=== PATIENT | female | born 2000 | race Two or more races ===

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

== ENCOUNTER → 2022-05-08 | Outpatient (CLI) | payer OTHER ==
[2022-05-08 22:47] LABS: HCT 37.1 % (37.2-46.3); HGB 11.6 g/dL (12.0-15.0); MCH 28.6 pg (27.0-32.0); MCHC 31.3 g/dL (32.0-37.0); MCV 91.6 fL (80.0-97.0); Mean Platelet Volume 11.6 fL (9.5-12.2); NRBC Per 100 WBC 0 /100 WBCS (0.0-0.0); Platelet Count 175 X 10*3/uL (140-440); RBC 4.05 X 10*6/uL (4.10-5.20); WBC 4.41 X 10*3/uL (4.50-10.00)
[2022-05-08 23:19] LABS: % Iron Saturation 13.86 (12.00-45.00); ALT 13 U/L (8-44); AST 20 U/L (13-35); African American GFR (CKD) 149.3 (60.0-200.0); Albumin 4.9 g/dL (3.8-4.9); Albumin/Globulin Ratio 2.08 (1.60-3.17); Alkaline Phosphatase 64 U/L (41-126); BUN/Creat Ratio 14.83 Ratio (12.00-20.00); Blood Urea Nitrogen 9.6 mg/dL (9.0-27.0); Calcium 9.7 mg/dL (8.7-10.3); Carbon Dioxide 24.7 mmol/L (20.0-27.5); Chloride 105 mmol/L (96-109); Ferritin 6.9 ng/mL (10.0-291.0); Globulin 2.4 g/dL (1.6-3.3); Glucose 105 mg/dL (70-110); Iron 71 ug/dL (50-170); Non-African American GFR(CKD) 128.8 (60.0-200.0); Potassium 4.2 mmol/L (3.5-5.5); Sodium 139 mmol/L (135-145); Total Bilirubin <0.15 mg/dL (0.30-1.20); Total Iron Binding Capacity 515 ug/dL (228-460); Total Protein 7.2 g/dL (6.2-8.2)
== END | disposition home or self-care (01) ==
LOC: LABWHC1 15:40
PROVIDERS: ATTEND Family Medicine
DX: Z77.011 Contact with and (suspected) exposure to lead (principal); R63.6 Underweight
CPT/HCPCS: 36415; 80053; 82728; 83540; 83550; 83655; 85027

== ENCOUNTER 2022-08-01 11:04 | Emergency (ER) | payer OTHER ==
[2022-08-01 11:11] VITALS: BP 134/77; PULSE 76; RESP 20; TEMP 98.6
[2022-08-01] MEDS ORDERED: KETOROLAC 15 MG/ML 1 ML VIAL IM STA (11:31)
[2022-08-01] MEDS ORDERED: LIDOCAINE 5% PATCH TOPICAL STA (11:31)
--- NOTE | 2022-08-01 11:43 | ED ---
General Adult HPI - General Chief complaint: Extremity Injury, Upper Stated complaint: rt arm pain Time Seen by Provider: 08/01/22 11:13 Source: patient, RN notes reviewed Mode of arrival: ambulatory Limitations: no limitations - History of Present Illness Initial comments: 22-year-old female presents to the emergency department chief complaint of right medial wrist pain that goes up into her shoulder. Patient states that it is worse with movement. She states that she underwent a workout yesterday for the first time in a while involving pushups, planks and states that she started having pain during her workout but she did not stop. Denies swelling, redness. Denies fever, chills. She states that she has history of iron deficiency but does not take her medication. - Related Data Previous Rx's Medication Instructions Recorded Cephalexin [Keflex] 500 mg PO Q8HR #21 cap 09/12/20 Omeprazole [PriLOSEC] 20 mg PO DAILY #14 cap 09/12/20 Ketorolac [Toradol] 10 mg PO Q8HR #15 tab 04/01/21 Ondansetron Odt [Zofran Odt] 4 mg PO Q8HR PRN #10 tab 04/01/21 Cefpodoxime Proxetil [Vantin] 200 mg PO Q12HR 10 Days #20 tab 04/07/22 Allergies Allergy/AdvReac Type Severity Reaction Status Date / Time No Known Allergies Allergy Verified 08/01/22 11:11 Review of Systems ROS Statement: Those systems with pertinent positive or pertinent negative responses have been documented in the HPI. ROS Other: All systems not noted in ROS Statement are negative. Past Medical History Past Medical History: Seizure Disorder Additional Past Medical History / Comment(s): depression History of Any Multi-Drug Resistant Organisms: None Reported Past Surgical History: No Surgical Hx Reported Past Psychological History: Depression Smoking Status: Current every day smoker, Vaper Past Alcohol Use History: None Reported Past Drug Use History: Marijuana General Exam Limitations: no limitations General appearance: alert, in no apparent distress Head exam: Present: atraumatic, normocephalic, normal inspection Eye exam: Present: normal appearance. Absent: scleral icterus, conjunctival injection, periorbital swelling ENT exam: Present: normal exam, mucous membranes moist Neck exam: Present: normal inspection, full ROM. Absent: tenderness, meningismus, lymphadenopathy Respiratory exam: Present: normal lung sounds bilaterally. Absent: respiratory distress, wheezes, rales, rhonchi, stridor Cardiovascular Exam: Present: regular rate, normal rhythm, normal heart sounds. Absent: systolic murmur, diastolic murmur, rubs, gallop, clicks Extremities exam: Present: normal inspection, full ROM, tenderness (medial forearm tenderness), normal capillary refill. Absent: pedal edema, joint swelling, calf tenderness Back exam: Present: normal inspection Neurological exam: Present: alert, oriented X3 Psychiatric exam: Present: normal affect, normal mood Skin exam: Present: warm, dry, intact, normal color. Absent: rash Course Vital Signs 08/01/22 11:08 Temperature 98.6 F Pulse Rate 76 Respiratory 20 Rate Blood Pressure 134/77 O2 Sat by Pulse 99 Oximetry Medical Decision Making - Medical Decision Making Was pt. sent in by a medical professional or institution ([facility], [employer]IT[employer] AND STORAGE BIN TENDER, urgent care, hospital, or custodial...) When possible be specific @ -No Did you speak to anyone other than the patient for history (EMS, parent, family, police, friend...)? What history was obtained from this source @ -No Did you review nursing and triage notes (agree or disagree)? Why? @ -I reviewed and agree with nursing and triage notes Were old charts reviewed (outside hosp., previous admission, EMS record, old EKG, old radiological studies, urgent care reports/EKG's, custodial records)? Report findings @ -No old charts were reviewed Differential Diagnosis (chest pain, altered mental status, abdominal pain women, abdominal pain men, vaginal bleeding, weakness, fever, dyspnea, syncope, headache, dizziness, GI bleed, back pain, seizure, CVA, palpatations, mental h ealth, musculoskeletal)? @ -Differential Musculoskeletal Muscular strain, contusion, ligament sprain, fracture, arthritis, septic arthritis, bursitis, cellulitis, muscle spasm, nerve compression, DVT, arterial occlusion, herpes zoster, electrolyte abnormality, tumor.... This is not meant to be in all inclusive list EKG interpreted by me (3pts min.). @ -none X-rays interpreted by me (1pt min.). @ -None done CT interpreted by me (1pt min.). @ -None done U/S interpreted by me (1pt. min.). @ -None done What testing was considered but not performed or refused? (CT, X-rays, U/S, labs)? Why? @ -X-ray was considered but considering the patient's history and physical exam, fracture unlikely What meds were considered but not given or refused? Why? @ -None Did you discuss the management of the patient with other professionals (professionals i.e. Dr., PA, MONITOR AND STORAGE BIN TENDER, lab, RT, psych nurse, nephrology social worker, woodworking shop hand, teacher, senior major gifts officer, window caser)? Give summary @ -No Was smoking cessation discussed for >3mins.? @ -No Was critical care preformed (if so, how long)? @ -No Were there social determinants of health that impacted care today? How? (Homelessness, low income, unemployed, alcoholism, drug addiction, transportati on, low edu. Level, literacy, decrease access to med. care, longterm, rehab)? @ -No Was there de-escalation of care discussed even if they declined (Discuss DNR or withdrawal of care, Hospice)? DNR status @ -No What co-morbidities impacted this encounter? (DM, HTN, Smoking, COPD, CAD, Cancer, CVA, ARF, Chemo, Hep., AIDS, mental health diagnosis, sleep apnea, morbid obesity)? @ -None Was patient admitted / discharged? Hospital course, mention meds given and route, prescriptions, significant lab abnormalities, going to OR and other pertinent info. @ -Discharged. Patient presented to the emergency department for chief complaint of right forearm pain following a workout yesterday. On examination, patient has tenderness over the medial forearm and in the bicep muscle. XR was considered but based on patient exam and history, fracture unlikely. This was discussed with the patient and her father. Patient was given IM toradol and a lidocaine patch. Advised to follow up with her primary care provider. Patient requesting work note which was given. Patient discharged in stable condition. Case discussed with my attending, Dr. Lerma. Undiagnosed new problem with uncertain prognosis? @ -No Drug Therapy requiring intensive monitoring for toxicity (Heparin, Nitro, Insulin, Cardizem)? @ -No Were any procedures done? @ -No Diagnosis/symptom? @ -wrist strain Acute, or Chronic, or Acute on Chronic? @ -acute Uncomplicated (without systemic symptoms) or Complicated (systemic symptoms)? @ -uncomplicated Side effects of treatment? @ -No Exacerbation, Progression, or Severe Exacerbation? @ -No Poses a threat to life or bodily function? How? (Chest pain, USA, DC, pneumonia, PE, COPD, DKA, ARF, appy, cholecystitis, CVA, Diverticulitis, Homicidal, Suicidal, threat to staff... and all critical care pts) @ -No Disposition Clinical Impression: Wrist strain Disposition: HOME SELF-CARE Condition: Stable Instructions (If sedation given, give patient instructions): P.R.I.C.E. Treatment (ED) Additional Instructions: Alternate Tylenol and Motrin as needed for pain. Rest, ice, elevate the right arm. Follow up with your primary care provider. Please return to the emergency department for new or worsening symptoms. Is patient prescribed a controlled substance at d/c from ED?: No Referrals: Andra Walker MD [Primary Care Provider] - 1-2 days Time of Disposition: 11:52
== END 2022-08-01 11:59 | disposition home or self-care (01) ==
LOC: EC 11:04
DX: S66.911A Strain of unspecified muscle, fascia and tendon at wrist and hand level, right hand, initial encounter (principal); F17.290 Nicotine dependence, other tobacco product, uncomplicated; F12.90 Cannabis use, unspecified, uncomplicated; Z86.59 Personal history of other mental and behavioral disorders; X50.0XXA Overexertion from strenuous movement or load, initial encounter
CPT/HCPCS: 99283; 96372; J1885

== ENCOUNTER → 2022-08-18 | Outpatient (CLI) | payer OTHER ==
--- NOTE | 2022-08-20 07:40 | US ---
EXAMINATION TYPE: US pelvis complete transvag DATE OF EXAM: 08/18/2022 COMPARISON: US & CT CLINICAL INDICATION: Female, 22 years old with history of R82.998 OTHER ABNORMAL FINDINGS IN URINE; P t states RLQ pain TECHNIQUE: Transvaginal (TV) and Transabdominal (TA) . Transabdominal sonographic images of the pel vis were acquired. Transvaginal sonographic images were medically necessary to better assess the fol lowing anatomy: Ovaries Date of LMP: 07/31/2022 EXAM MEASUREMENTS: Uterus: 8.0 x 3.8 x 4.7 cm Endometrial Stripe: 1.5 cm Right Ovary: 2.9 x 2.4 x 3.1 cm Left Ovary: 3.6 x 2.2 x 2.6 cm 1. Uterus: Anteverted wnl 2. Endometrium: Thickened 3. Right Ovary: wnl 4. Left Ovary: wnl 5. Bilateral Adnexa: wnl 6. Posterior cul-de-sac: Scant amount of free fluid IMPRESSION: Nonspecific endometrial thickening. Examination is otherwise unremarkable.
== END | disposition home or self-care (01) ==
LOC: RADUSWWP 16:07
PROVIDERS: ATTEND Family Medicine
DX: R93.89 Abnormal findings on diagnostic imaging of other specified body structures (principal); R82.998 Other abnormal findings in urine
CPT/HCPCS: 76830; 76856

== ENCOUNTER 2024-02-06 20:10 | Emergency (ER) | payer OTHER ==
--- NOTE | 2024-02-06 20:57 | ED ---
Nausea/Vomiting/Diarrhea HPI - General Source: patient, RN notes reviewed Mode of arrival: ambulatory Limitations: no limitations <Shantelle Duran - Last Filed: 02/06/24 22:00> <Ayse Cates - Last Filed: 02/07/24 18:52> - General Chief complaint: Nausea/Vomiting/Diarrhea Stated complaint: NVD Time Seen by Provider: 02/06/24 20:56 - History of Present Illness Initial comments: 23-year-old female presented to the ER for evaluation of nausea, vomiting and diarrhea. Patient states all day she has had persistent nausea, vomiting and diarrhea. She also is reporting generalized abdominal pain. She does report she ate red chips prior to this occurring and is unsure of any hematochezia, hematic emesis or melena. Patient denies fevers but admits to chills. She denies any significant past medical history. Patient has not taken anything for symptoms at this time. Patient does report a recent cough. Denies any difficulty breathing, chest pain, urinary complaints or peripheral edema. (Shantelle Duran) - Related Data Previous Rx's Medication Instructions Recorded Cephalexin [Keflex] 500 mg PO Q8HR #21 cap 09/12/20 Omeprazole [PriLOSEC] 20 mg PO DAILY #14 cap 09/12/20 Ketorolac [Toradol] 10 mg PO Q8HR #15 tab 04/01/21 Ondansetron Odt [Zofran Odt] 4 mg PO Q8HR PRN #10 tab 04/01/21 Cefpodoxime Proxetil [Vantin] 200 mg PO Q12HR 10 Days #20 tab 04/07/22 Ondansetron Odt [Zofran Odt] 4 mg PO Q8HR PRN #10 tab 02/07/24 Allergies Allergy/AdvReac Type Severity Reaction Status Date / Time No Known Allergies Allergy Verified 08/01/22 11:11 Review of Systems ROS Other: All systems not noted in ROS Statement are negative. <Shantelle Duran - Last Filed: 02/06/24 22:00> ROS Other: All systems not noted in ROS Statement are negative. <Ayse Cates - Last Filed: 02/07/24 18:52> ROS Statement: Those systems with pertinent positive or pertinent negative responses have been documented in the HPI. Past Medical History Past Medical History: Seizure Disorder Additional Past Medical History / Comment(s): depression History of Any Multi-Drug Resistant Organisms: None Reported Past Surgical History: No Surgical Hx Reported Past Psychological History: Depression Smoking Status: Current every day smoker, Vaper Past Alcohol Use History: None Reported Past Drug Use History: Marijuana <Shantelle Duran - Last Filed: 02/06/24 22:00> General Exam Limitations: no limitations General appearance: alert, in no apparent distress Respiratory exam: Present: normal lung sounds bilaterally. Absent: respiratory distress, wheezes, rales, rhonchi, stridor Cardiovascular Exam: Present: normal rhythm, tachycardia, normal heart sounds GI/Abdominal exam: Present: soft, tenderness (Generalized), normal bowel sounds Neurological exam: Present: alert, oriented X3, CN II-XII intact Skin exam: Present: warm, dry, intact, normal color. Absent: rash <Shantelle Duran - Last Filed: 02/06/24 22:00> Course Vital Signs 02/06/24 02/07/24 02/07/24 20:22 01:15 03:30 Temperature 98.6 F 97.8 F Pulse Rate 111 H 98 88 Respiratory 20 16 18 Rate Blood Pressure 128/77 112/76 108/78 O2 Sat by Pulse 100 97 99 Oximetry Medical Decision Making - Lab Data Result diagrams: 02/06/24 21:00 02/06/24 21:00 <Shantelle Duran - Last Filed: 02/06/24 22:00> - Lab Data Result diagrams: 02/06/24 21:00 02/06/24 21:00 <Ayse Cates - Last Filed: 02/07/24 18:52> - Medical Decision Making Was pt. sent in by a medical professional or institution (, PA, CUSTOMS PATROL OFFICER, urgent care, hospital, or fci...) When possible be specific @ -No Did you speak to anyone other than the patient for history (EMS, parent, family, police, friend...)? What history was obtained from this source @ -No Did you review nursing and triage notes (agree or disagree)? Why? @ -I reviewed and agree with nursing and triage notes Were old charts reviewed (outside hosp., previous admission, EMS record, old EKG, old radiological studies, urgent care reports/EKG's, fci records)? Report findings @ -No old charts were reviewed Differential Diagnosis (chest pain, altered mental status, abdominal pain women, abdominal pain men, vaginal bleeding, weakness, fever, dyspnea, syncope, headache, dizziness, GI bleed, back pain, seizure, CVA, palpatations, mental health, musculoskeletal)? @ -Differential Abdominal Pain Women:Appendicitis, Cholecystitis, diverticulosis, ischemic bowel, pancreatitis, hepatitis, UTI, gastroenteritis, AAA, incarcerated hernia, bowel obstruction, constipation, inflammatory bowel, hepatitis, peptic ulcer disease, splenic infarction, perforated viscus, vulvitis, ovarian torsion, PID, kidney stone, placenta abruption, this is not meant to be an all-inclusive list EKG interpreted by me (3pts min.). @ -None done X-rays interpreted by me (1pt min.). @ -None done CT interpreted by me (1pt min.). @ -Pending U/S interpreted by me (1pt. min.). @ -None done What testing was considered but not performed or refused? (CT, X-rays, U/S, labs)? Why? @ -None What meds were considered but not given or refused? Why? @ -None Did you discuss the management of the patient with other professionals (professionals i.e. , PA, CUSTOMS PATROL OFFICER, lab, RT, psych nurse, social problems specialist, preschool assistant, teacher, escrow officer, director case)? Give summary @ -No Was smoking cessation discussed for >3mins.? @ -No Was critical care preformed (if so, how long)? @ -No Were there social determinants of health that impacted care today? How? (Homelessness, low income, unemployed, alcoholism, drug addiction, petty sportation, low edu. Level, literacy, decrease access to med. care, alf, rehab)? @ -No Was there de-escalation of care discussed even if they declined (Discuss DNR or withdrawal of care, Hospice)? DNR status @ -No What co-morbidities impacted this encounter? (DM, HTN, Smoking, COPD, CAD, Cancer, CVA, ARF, Chemo, Hep., AIDS, mental health diagnosis, sleep apnea, morbid obesity)? @ -None Was patient admitted / discharged? Hospital course, mention meds given and route, prescriptions, significant lab abnormalities, going to OR and other pertinent info. @ -[23-year-old female presented the ER for evaluation of nausea, vomiting, diarrhea and abdominal discomfort. Upon examination, patient is tachycardic at 111 no signs of acute distress. Vitals otherwise stable. Generalized abdominal tenderness to exam with no rebound or guarding. Laboratory studies including urine will be obtained. CBC unimpressive. CMP unimpressive. Viral swabs negative. Patient received symptomatic control in the ER with IV fluids, Toradol and Zofran. CT ordered as patient complaining of continued pain and pending at time of sign out to Ayse Springer PA-C at [phone]. (Shantelle Duran) Patient was signed out to me pending urinalysis, CT and disposition. urinalysis is contaminated with 24 epithelial cells and consistent with dehydration with 4+ ketones and elevated specific gravity. She is right with additional IV fluids. hCG is negative. The patient is sent for CT imaging. CT of the abdomen pelvis with IV contrast unremarkable for acute process. On reevaluation after medications patient has ceased emesis and states that she is feeling better. She is provided with starter pack for Zofran instructed to continue clear liquid diet over 24 hours and slowly reintroducing foods after., discussed with Dr. English (Ayse Cates) - Lab Data Lab Results 02/06/24 02/06/24 02/06/24 Range/Units 21:00 21:00 21:00 WBC 6.8 (3.8-10.6) k/uL RBC 4.83 (3.80-5.40) m/uL Hgb 13.8 (11.4-16.0) gm/dL Hct 42.0 (34.0-46.0) % MCV 87.0 (80.0-100.0) fL MCH 28.6 (25.0-35.0) pg MCHC 32.8 (31.0-37.0) g/dL RDW 13.6 (11.5-15.5) % Plt Count 210 (150-450) k/uL MPV 8.2 Neutrophils % 91 % Lymphocytes % 4 % Monocytes % 3 % Eosinophils % 0 % Basophils % 0 % Neutrophils # 6.2 (1.3-7.7) k/uL Lymphocytes # 0.3 L (1.0-4.8) k/uL Monocytes # 0.2 (0-1.0) k/uL Eosinophils # 0.0 (0-0.7) k/uL Basophils # 0.0 (0-0.2) k/uL Sodium 139 (137-145) mmol/L Potassium 3.7 (3.5-5.1) mmol/L Chloride 108 H (98-107) mmol/L Carbon Dioxide 17 L (22-30) mmol/L Anion Gap 14 mmol/L BUN 14 (7-17) mg/dL Creatinine 0.58 (0.52-1.04) mg/dL Est GFR (CKD-EPI)AfAm >90 (>60 ml/min/1.73 sqM) Est GFR (CKD-EPI)NonAf >90 (>60 ml/min/1.73 sqM) Glucose 98 (74-99) mg/dL Plasma Lactic Acid Ry 1.6 (0.7-2.0) mmol/L Calcium 10.3 H (8.4-10.2) mg/dL Total Bilirubin 0.9 (0.2-1.3) mg/dL AST 26 (14-36) U/L ALT 12 (4-34) U/L Alkaline Phosphatase 100 (38-126) U/L Total Protein 9.2 H (6.3-8.2) g/dL Albumin 5.7 H (3.5-5.0) g/dL Amylase 69 (30-110) U/L Lipase 46 (23-300) U/L Urine Color Urine Appearance (Clear) Urine pH (5.0-8.0) Ur Specific [place] (1.001-1.035) Urine Protein (Negative) Urine Glucose (UA) (Negative) Urine Ketones (Negative) Urine Blood (Negative) Urine Nitrite (Negative) Urine Bilirubin (Negative) Urine Urobilinogen (<2.0) mg/dL Ur Leukocyte Esterase (Negative) Urine RBC (0-5) /hpf Urine WBC (0-5) /hpf Ur Squamous Epith Cells (0-4) /hpf Urine Bacteria (None) /hpf Hyaline Casts (0-2) /lpf Urine Mucus (None) /hpf Urine HCG, Qual (Not Detectd) Influenza Type A (PCR) (Not Detectd) Influenza Type B (PCR) (Not Detectd) RSV (PCR) (Not Detectd) SARS-CoV-2 (PCR) (Not Detectd) 02/06/24 02/06/24 02/06/24 Range/Units 21:00 22:13 22:13 WBC (3.8-10.6) k/uL RBC (3.80-5.40) m/uL Hgb (11.4-16.0) gm/dL Hct (34.0-46.0) % MCV (80.0-100.0) fL MCH (25.0-35.0) pg MCHC (31.0-37.0) g/dL RDW (11.5-15.5) % Plt Count (150-450) k/uL MPV Neutrophils % % Lymphocytes % % Monocytes % % Eosinophils % % Basophils % % Neutrophils # (1.3-7.7) k/uL Lymphocytes # (1.0-4.8) k/uL Monocytes # (0-1.0) k/uL Eosinophils # (0-0.7) k/uL Basophils # (0-0.2) k/uL Sodium (137-145) mmol/L Potassium (3.5-5.1) mmol/L Chloride (98-107) mmol/L Carbon Dioxide (22-30) mmol/L Anion Gap mmol/L BUN (7-17) mg/dL Creatinine (0.52-1.04) mg/dL Est GFR (CKD-EPI)AfAm (>60 ml/min/1.73 sqM) Est GFR (CKD-EPI)NonAf (>60 ml/min/1.73 sqM) Glucose (74-99) mg/dL Plasma Lactic Acid Ry (0.7-2.0) mmol/L Calcium (8.4-10.2) mg/dL Total Bilirubin (0.2-1.3) mg/dL AST (14-36) U/L ALT (4-34) U/L Alkaline Phosphatase (38-126) U/L Total Protein (6.3-8.2) g/dL Albumin (3.5-5.0) g/dL Amylase (30-110) U/L Lipase (23-300) U/L Urine Color Yellow Urine Appearance Cloudy H (Clear) Urine pH 5.5 (5.0-8.0) Ur Specific [place] 1.037 H (1.001-1.035) Urine Protein 2+ H (Negative) Urine Glucose (UA) Negative (Negative) Urine Ketones 4+ H (Negative) Urine Blood Large H (Negative) Urine Nitrite Negative (Negative) Urine Bilirubin Negative (Negative) Urine Urobilinogen <2.0 (<2.0) mg/dL Ur Leukocyte Esterase Negative (Negative) Urine RBC 15 H (0-5) /hpf Urine WBC 2 (0-5) /hpf Ur Squamous Epith Cells 24 H (0-4) /hpf Urine Bacteria Rare H (None) /hpf Hyaline Casts 1 (0-2) /lpf Urine Mucus Many H (None) /hpf Urine HCG, Qual Not Detected (Not Detectd) Influenza Type A (PCR) Not Detected (Not Detectd) Influenza Type B (PCR) Not Detected (Not Detectd) RSV (PCR) Not Detected (Not Detectd) SARS-CoV-2 (PCR) Not Detected (Not Detectd) Disposition <Shantelle Duran - Last Filed: 02/06/24 22:00> Is patient prescribed a controlled substance at d/c from ED?: No Time of Disposition: 02:47 <Ayse Cates - Last Filed: 02/07/24 18:52> Clinical Impression: Nausea & vomiting, Unspecified abdominal pain Disposition: HOME SELF-CARE Condition: Good Instructions (If sedation given, give patient instructions): Acute Nausea and Vomiting (ED) Additional Instructions: Please return to the Emergency Department if symptoms worsen or any other concerns. Prescriptions: Ondansetron Odt [Zofran Odt] 4 mg PO Q8HR PRN #10 tab PRN Reason: Nausea Referrals: None,Stated [Primary Care Provider] - 1-2 days
[2024-02-06 21:27] LABS: ALT 12 U/L (4-34); AST 26 U/L (14-36); African American GFR (CKD) >90 (>60 ml/min/1.73 sqM); Albumin 5.7 g/dL (3.5-5.0); Alkaline Phosphatase 100 U/L (38-126); Amylase 69 U/L (30-110); Anion Gap 14 mmol/L; Blood Urea Nitrogen 14 mg/dL (7-17); Calcium 10.3 mg/dL (8.4-10.2); Carbon Dioxide 17 mmol/L (22-30); Chloride 108 mmol/L (98-107); Glucose 98 mg/dL (74-99); Lipase 46 U/L (23-300); Non-African American GFR(CKD) >90 (>60 ml/min/1.73 sqM); Potassium 3.7 mmol/L (3.5-5.1); Sodium 139 mmol/L (137-145); Total Bilirubin 0.9 mg/dL (0.2-1.3); Total Protein 9.2 g/dL (6.3-8.2)
[2024-02-06] MEDS: SODIUM CHLORIDE 0.9% 1,000 ML IV STA (21:27)
[2024-02-06] MEDS: KETOROLAC 15 MG/ML 1 ML VIAL IVP STA (21:29)
[2024-02-06] MEDS: ONDANSETRON 4 MG/2 ML VIAL IVP STA ×2 (21:30→22:23)
[2024-02-06 21:40] LABS: Basophils % (A) 0 %; Eosinophils % (A) 0 %; HGB 13.8 gm/dL (11.4-16.0); Lymphocytes # (A) 0.3 k/uL (1.0-4.8); Lymphocytes % (A) 4 %; MCH 28.6 pg (25.0-35.0); MCHC 32.8 g/dL (31.0-37.0); Mean Platelet Volume 8.2; Monocytes # (A) 0.2 k/uL (0-1.0); Monocytes % (A) 3 %; Neutrophils # (A) 6.2 k/uL (1.3-7.7); Neutrophils % (A) 91 %; Platelet Count 210 k/uL (150-450); RBC 4.83 m/uL (3.80-5.40); RDW 13.6 % (11.5-15.5); WBC 6.8 k/uL (3.8-10.6)
[2024-02-06] MEDS: MORPHINE SULFATE 2 MG/ML SYRINGE IVP ONE (22:23)
[2024-02-06 22:53] LABS: Appearance,Urine Cloudy (Clear); Bacteria,Urine Rare /hpf; Bilirubin,Urine Negative (Negative); Blood,Urine Large (Negative); Color,Urine Yellow; Glucose,Urine (UA) Negative (Negative); Hyaline Casts,Urine 1 /lpf (0-2); Ketones,Urine 4+ (Negative); Leukocyte Esterase,Urine Negative (Negative); Mucus,Urine Many /hpf; Nitrite,Urine Negative (Negative); PH, Urine 5.5 (5.0-8.0); Protein,Urine 2+ (Negative); RBC,Urine 15 /hpf (0-5); Specific Gravity,Urine 1.037 (1.001-1.035); Squamous Epithelial Cell,Urine 24 /hpf (0-4); Urobilinogen,Urine <2.0 mg/dL (<2.0); WBC,Urine 2 /hpf (0-5)
[2024-02-06] MEDS: METOCLOPRAMIDE 5 MG/ML 2 ML VIAL IVP STA (23:59)
--- NOTE | 2024-02-07 02:31 | CT ---
EXAM: CT Abdomen and Pelvis With Intravenous Contrast CLINICAL HISTORY: ITS.REASON CT Reason: abd pain/n/v/d TECHNIQUE: Axial computed tomography images of the abdomen and pelvis with intravenous contrast. CTDI is 8.4 mGy and DLP is 383.7 mGy-cm. This CT exam was performed using one or more of the following dose reduction techniques: automated exposure control, adjustment of the mA and/or kV according to patient size, and/or use of iterative reconstruction technique. COMPARISON: No relevant prior studies available. FINDINGS: Lung bases: Unremarkable. No mass. No consolidation. ABDOMEN: Liver: Unremarkable. No mass. Gallbladder and bile ducts: Unremarkable. No calcified stones. No ductal dilation. Pancreas: Unremarkable. No mass. No ductal dilation. Spleen: Unremarkable. No splenomegaly. Adrenals: Unremarkable. No mass. Kidneys and ureters: Unremarkable. No solid mass. No hydronephrosis. Stomach and bowel: Unremarkable. No obstruction. No mucosal thickening. PELVIS: Appendix: No findings to suggest acute appendicitis. Bladder: Unremarkable. No mass. Reproductive: Unremarkable as visualized. ABDOMEN and PELVIS: Intraperitoneal space: Mild free fluid in the pelvis. No free air. Bones/joints: No acute fracture. No dislocation. Soft tissues: Unremarkable. Vasculature: Unremarkable. No abdominal aortic aneurysm. Lymph nodes: Unremarkable. No enlarged lymph nodes. IMPRESSION: No acute findings in the abdomen or pelvis.
[2024-02-07] MEDS: SODIUM CHLORIDE 0.9% 1,000 ML IV STA (02:43)
[2024-02-07] MEDS: ONDANSETRON 4 MG ODT STARTER PACK 2 TAB BTL PO STA (03:28)
[2024-02-07 03:30] VITALS: BP 108/78; PULSE 88; RESP 18; TEMP 97.8
== END 2024-02-07 03:30 | disposition home or self-care (01) ==
LOC: EC 20:10
DX: R10.84 Generalized abdominal pain (principal); R11.2 Nausea with vomiting, unspecified; F17.290 Nicotine dependence, other tobacco product, uncomplicated; Z11.52 Encounter for screening for COVID-19
CPT/HCPCS: 36415; 80053; 82150; 83605; 83690; 85025; 81001; 81025; 87636; 74177; 99284; 96374; 96375; 96376; 96361 ×2; J2765; J2405; J2270; J1885; Q9967

== ENCOUNTER → 2024-04-11 | Outpatient (CLI) | payer OTHER ==
--- NOTE | 2024-04-13 22:44 | CT ---
EXAMINATION TYPE: CT abdomen wo/w con DATE OF EXAM: 04/11/2024 11:14 AM COMPARISON: 02/06/2024 CLINICAL INDICATION: Female, 23 years old with history of R82.5 ELEVATED URINE LEVELS OF DRUG/MEDS/BI OL SUBS, Elevated BP TECHNIQUE: Axial images were obtained from above the diaphragm to the pubic rami in the axial plane a t 5 mm thick sections. Reconstructed images are reviewed on the computer in the coronal plane. CONTRAST: 100 mL of Isovue 300. Study performed with Oral Contrast DLP: 369.90 mGycm, Automated exposure control for dose reduction was used. FINDINGS: Limited CT sections are obtained the lung bases. The lung bases are clear. CT ABDOMEN: No abnormal enhancement Liver: Normal Spleen: Normal Pancreas: Normal Adrenal glands: The adrenal glands are normal. Gallbladder: Normal Kidneys: No masses are evident. No hydronephrosis is present. No cysts are present. No renal stone s evident. No abnormal enhancement on early or delayed contrast phases. Aorta: Vascular calcification is within the aorta. Inferior vena cava: Normal. Loops of bowel within the abdomen and upper pelvis are normal. There are loops of bowel which are incompletely distended or lack oral contrast limiting their evaluation. IMPRESSION: 1. No suspicious acute changes CT abdomen [facility], , 04/13/2024 10:42 PM
== END | disposition home or self-care (01) ==
LOC: RADCTMAIN 10:05
PROVIDERS: ATTEND Family Medicine
DX: R82.5 Elevated urine levels of drugs, medicaments and biological substances (principal)
CPT/HCPCS: 74170; Q9967

== ENCOUNTER 2024-04-27 16:45 | Emergency (ER) | payer OTHER ==
--- NOTE | 2024-04-27 17:13 | ED ---
General Adult HPI - General Chief complaint: Neuro Symptoms/Deficit Stated complaint: allergic reaction Time Seen by Provider: 04/27/24 17:10 Source: patient Mode of arrival: ambulatory Limitations: no limitations - History of Present Illness Initial comments: Dictation was produced using [employer] dictation software. please excuse any grammatical, word or spelling errors. 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 Patient is she was having a normal day when all of a sudden she started to feel faint had a migraine started to get dizzy. Her material handling crew supervisor checked her temperature is found to be at 100. She was sent home from work. By the time she got home from work she noticed a rash on her left face. Patient also noticed that her tongue felt numb completely and her left arm was having par esthesias. She went to the urgent care was redirected to the emergency department. Patient denies any pain complaints currently. The ROS documented in this emergency department record has been reviewed and confirmed by me. Those systems with pertinent positive or negative responses have been documented in the HPI. All other systems are other negative and/or noncontributory. - Related Data Previous Rx's Medication Instructions Recorded Cephalexin [Keflex] 500 mg PO Q8HR #21 cap 09/12/20 Omeprazole [PriLOSEC] 20 mg PO DAILY #14 cap 09/12/20 Ketorolac [Toradol] 10 mg PO Q8HR #15 tab 04/01/21 Ondansetron Odt [Zofran Odt] 4 mg PO Q8HR PRN #10 tab 04/01/21 Cefpodoxime Proxetil [Vantin] 200 mg PO Q12HR 10 Days #20 tab 04/07/22 Ondansetron Odt [Zofran Odt] 4 mg PO Q8HR PRN #10 tab 02/07/24 Allergies Allergy/AdvReac Type Severity Reaction Status Date / Time No Known Allergies Allergy Verified 04/27/24 17:00 Review of Systems ROS Statement: Those systems with pertinent positive or pertinent negative responses have been documented in the HPI. ROS Other: All systems not noted in ROS Statement are negative. Past Medical History Past Medical History: Seizure Disorder Additional Past Medical History / Comment(s): depression History of Any Multi-Drug Resistant Organisms: None Reported Past Surgical History: No Surgical Hx Reported Past Psychological History: Depression Smoking Status: Current every day smoker, Vaper Past Alcohol Use History: None Reported Past Drug Use History: Marijuana General Exam - General Exam Comments Initial Comments: PHYSICAL EXAM: General Impression: Alert and oriented x3, not in acute distress HEENT: Normocephalic atraumatic, extra-ocular movements intact, pupils equal and reactive to light bilaterally, mucous membranes moist. Cardiovascular: Heart regular rate and rhythm Chest: Able to complete full sentences, no retractions, no tachypnea Abdomen: abdomen soft, non-tender, non-distended, no organomegaly Musculoskeletal: Pulses present and equal in all extremities, no peripheral noelle ma Motor: no focal deficits noted Neurological: CN II-XII grossly intact, no focal motor or sensory deficits noted Skin: Petechial rash to the left face from the left temporal area to the left maxilla no petechiae to the soft palate or distal extremities Psych: Normal affect and mood Limitations: no limitations Course Vital Signs 04/27/24 16:54 Temperature 98 F Pulse Rate 99 Respiratory 18 Rate Blood Pressure 139/99 O2 Sat by Pulse 100 Oximetry Medical Decision Making - Medical Decision Making Was pt. sent in by a medical professional or institution (, PA, BUSINESS MANAGEMENT ANALYST, urgent care, hospital, or [facility]...) When possible be specific @ -No Did you speak to anyone other than the patient for history (EMS, parent, family, police, friend...)? What history was obtained from this source @ -No Did you review nursing and triage notes (agree or disagree)? Why? @ -I reviewed and agree with nursing and triage notes Were old charts reviewed (outside hosp., previous admission, EMS record, old EKG, old radiological studies, urgent care reports/EKG's, [facility] records)? Report findings @ -No old charts were reviewed Differential Diagnosis (chest pain, altered mental status, abdominal pain women, abdominal pain men, vaginal bleeding, musculoskeletal, weakness, fever, dyspnea, syncope, headache, dizziness, GI bleed, back pain, seizure, CVA, palpatations, mental health)? @ -Differential Dizziness: Benign paroxysmal positional Vertigo, Meniere's disease, otitis media, acoustic neuroma, vertebrobasilar insufficiency, cerebellar stroke, encephalitis, hypovolemic, arrhythmia, coronary artery syndrome, anemia, this is not meant to be an all-inclusive list EKG interpreted by me (3pts min.). @ -None done X-rays interpreted by me (1pt min.). @ -None done CT interpreted by me (1pt min.). @ -CT brain shows no acute processes U/S interpreted by me (1pt. min.). @ -None done What testing was considered but not performed or refused? (CT, X-rays, U/S, labs)? Why? @ -None What meds were considered but not given or refused? Why? @ -None Was smoking cessation discussed for >3mins.? @ -No Were there social determinants of health that impacted care today? How? (Homelessness, low income, unemployed, alcoholism, drug addiction, transpo rtation, low edu. Level, literacy, decrease access to med. care, detention, rehab)? @ -No Was there de-escalation of care discussed even if they declined (Discuss DNR or withdrawal of care, Hospice)? DNR status @ -No What co-morbidities impacted this encounter? (DM, HTN, Smoking, COPD, CAD, Cancer, CVA, ARF, Chemo, Hep., AIDS, mental health diagnosis, sleep apnea, morbid obesity)? @ -None Was patient admitted / discharged? Hospital course, mention meds given and route, prescriptions, significant lab abnormalities, going to OR and other pertinent info. @ -23-year-old female presents to the emergency department for dizziness feeling faint, left facial rash and slight headache. Vital signs stable. Patient well-appearing at the bedside. Rash appears to be maculopapular. Nonblanching. Does not appear to be pathologic or concerning for trigeminal neuralgia. CT brain is negative. Labs are unremarkable. Patient told to follow-up with primary care doctor. At this point no high risk features noted. Patient discharged Did you discuss the management of the patient with other professionals (professionals i.e. , PA, BUSINESS MANAGEMENT ANALYST, lab, RT, psych nurse, rn social work, air cargo ground operations supervisor, teacher, air crew officer, manager rn case)? Give summary @ -No Was critical care preformed (if so, how long)? @ -No Undiagnosed new problem with uncertain prognosis? @ -No Drug Therapy requiring intensive monitoring for toxicity (Heparin, Nitro, Insulin, Cardizem)? @ -No Were any procedures done? @ -No Diagnosis/symptom? Acute, or Chronic, or Acute on Chronic? Uncomplicated (without systemic symptoms) or Complicated (systemic symptoms)? @ -Facial rash Side effects of treatment? @ -No Exacerbation, Progression, or Severe Exacerbation? @ -No Poses a threat to life or bodily function? How? (Chest pain, [place], SC, pneumonia, PE, COPD, DKA, ARF, appy, cholecystitis, CVA, Diverticulitis, Homicidal, Suicidal, threat to staff... and all critical care pts) @ -No - Lab Data Result diagrams: 04/27/24 17:40 04/27/24 17:40 Lab Results 04/27/24 04/27/24 04/27/24 Range/Units 17:40 17:40 17:40 WBC 11.4 H (3.8-10.6) k/uL RBC 4.34 (3.80-5.40) m/uL Hgb 11.7 (11.4-16.0) gm/dL Hct 37.0 (34.0-46.0) % MCV 85.3 (80.0-100.0) fL MCH 27.0 (25.0-35.0) pg MCHC 31.7 (31.0-37.0) g/dL RDW 15.2 (11.5-15.5) % Plt Count 214 (150-450) k/uL MPV 8.0 Neutrophils % 85 % Lymphocytes % 9 % Monocytes % 4 % Eosinophils % 0 % Basophils % 0 % Neutrophils # 9.7 H (1.3-7.7) k/uL Lymphocytes # 1.0 (1.0-4.8) k/uL Monocytes # 0.5 (0-1.0) k/uL Eosinophils # 0.1 (0-0.7) k/uL Basophils # 0.0 (0-0.2) k/uL Sodium 137 (137-145) mmol/L Potassium 3.7 (3.5-5.1) mmol/L Chloride 102 (98-107) mmol/L Carbon Dioxide 21 L (22-30) mmol/L Anion Gap 14 mmol/L BUN 12 (7-17) mg/dL Creatinine 0.46 L (0.52-1.04) mg/dL Est GFR (CKD-EPI)AfAm >90 (>60 ml/min/1.73 sqM) Est GFR (CKD-EPI)NonAf >90 (>60 ml/min/1.73 sqM) Glucose 90 (74-99) mg/dL Calcium 9.7 (8.4-10.2) mg/dL Magnesium 2.2 (1.6-2.3) mg/dL Total Bilirubin 0.4 (0.2-1.3) mg/dL AST 26 (14-36) U/L ALT 13 (4-34) U/L Alkaline Phosphatase 67 (38-126) U/L Total Protein 7.4 (6.3-8.2) g/dL Albumin 4.7 (3.5-5.0) g/dL Urine HCG, Qual Not Detected (Not Detectd) Disposition Clinical Impression: Facial rash Disposition: HOME SELF-CARE Condition: Good Instructions (If sedation given, give patient instructions): Dermatitis (ED) Is patient prescribed a controlled substance at d/c from ED?: No Referrals: Gurpreet Tsai MD [Primary Care Provider] - 1-2 days Time of Disposition: 19:09
[2024-04-27] MEDS: SODIUM CHLORIDE 0.9% 1,000 ML IV STA (17:40)
[2024-04-27 17:59] LABS: Basophils % (A) 0 %; Eosinophils # (A) 0.1 k/uL (0-0.7); Eosinophils % (A) 0 %; HGB 11.7 gm/dL (11.4-16.0); Lymphocytes % (A) 9 %; MCHC 31.7 g/dL (31.0-37.0); MCV 85.3 fL (80.0-100.0); Monocytes # (A) 0.5 k/uL (0-1.0); Monocytes % (A) 4 %; Neutrophils # (A) 9.7 k/uL (1.3-7.7); Neutrophils % (A) 85 %; Platelet Count 214 k/uL (150-450); RBC 4.34 m/uL (3.80-5.40); RDW 15.2 % (11.5-15.5); WBC 11.4 k/uL (3.8-10.6)
[2024-04-27 18:11] LABS: ALT 13 U/L (4-34); AST 26 U/L (14-36); African American GFR (CKD) >90 (>60 ml/min/1.73 sqM); Albumin 4.7 g/dL (3.5-5.0); Alkaline Phosphatase 67 U/L (38-126); Anion Gap 14 mmol/L; Blood Urea Nitrogen 12 mg/dL (7-17); Calcium 9.7 mg/dL (8.4-10.2); Carbon Dioxide 21 mmol/L (22-30); Chloride 102 mmol/L (98-107); Glucose 90 mg/dL (74-99); Magnesium 2.2 mg/dL (1.6-2.3); Non-African American GFR(CKD) >90 (>60 ml/min/1.73 sqM); Potassium 3.7 mmol/L (3.5-5.1); Sodium 137 mmol/L (137-145); Total Bilirubin 0.4 mg/dL (0.2-1.3); Total Protein 7.4 g/dL (6.3-8.2)
--- NOTE | 2024-04-27 18:37 | CT ---
EXAMINATION TYPE: CT brain wo con CT DLP: 1141.7 mGycm, Automated exposure control for dose reduction was used. DATE OF EXAM: 04/27/2024 6:25 PM COMPARISON: CT brain 10/07/2018 CLINICAL INDICATION:Female, 23 years old with history of headache, tongue numb, left arms paresthesia s, Headache, tongue numb, left arms paresthesias. TECHNIQUE: Brain: Multiple axial CT images of the brain were obtained without IV contrast. . Coronal and sagitta l reformats reviewed. FINDINGS: Brain: Extra-axial spaces: No abnormal extra-axial fluid collections. Ventricular system: Within normal limits Cerebral parenchyma: No acute intraparenchymal hemorrhage or mass effect. The berry-white junction is well differentiated. Cerebellum: Unremarkable. Mass effect: No evidence of midline shift. Intracranial vasculature: unremarkable Soft tissues: Normal. Calvarium/osseous structures: No depressed skull fracture. Paranasal sinuses and mastoid air cells: The mastoid air cells are clear. Minimal mucosal thickening of the right maxillary sinus. Left inferior maxillary sinus 2.0 cm mucous retention cyst. Minimal muc osal thickening of the remaining paranasal sinuses. Visualized orbits: Orbital contents are intact. IMPRESSION: No acute intracranial process. [facility], , 04/27/2024 6:34 PM
[2024-04-27 19:55] VITALS: BP 135/91; PULSE 89; RESP 17; TEMP 98.3
== END 2024-04-27 19:53 | disposition home or self-care (01) ==
LOC: EC 16:45
DX: R21 Rash and other nonspecific skin eruption (principal); F17.290 Nicotine dependence, other tobacco product, uncomplicated
CPT/HCPCS: 36415; 70450; 80053; 81025; 83735; 85025; 96360; 99284

== ENCOUNTER → 2024-05-11 | Outpatient (CLI) | payer OTHER ==
--- NOTE | 2024-05-12 06:33 | MR ---
EXAMINATION TYPE: MR brain wo/w con DATE OF EXAM: 05/11/2024 COMPARISON: CT brain 2 weeks earlier. HISTORY: Was found unconscious at work, no memory of what happened, history of seizures. left sided n umbness and tip of tongue TECHNIQUE: Multiplanar, multisequence images of the brain and brainstem is performed without and with IV contras t, utilizing 5 mL intravenous Gadobutrol . FINDINGS: Diffusion weighted images demonstrate no evidence of a recent infarct or other diffusion ab normality. There is no extra-axial fluid collection or significant white matter signal abnormality. The ventricular system and cisternal spaces are normal in size and appearance. The brain volume is age appropriate. The hippocampal gyri are symmetric and within normal limits on the T2 coronal weight ed images. T2*weighted images show 3 mm round low intense focus left frontal lobe at level of [place] radiata consistent with old blood product and suggestion of additional similar small foci along the p eriphery of the superior anterior bilateral frontal lobes likely filling sulci Midline structures demonstrate normal morphology. The craniocervical junction appears within normal limits. Post contrast images demonstrate no abnormal enhancement. The dural venous sinuses appear pa tent. Persistent 2.1 cm mucous retention cyst in the anterior-inferior left maxillary sinusitis and m ild mucosal thickening of the ethmoid sinuses bilaterally. Globes are intact bilaterally. IMPRESSION: 1. Evidence of old blood product consistent with remote trauma/SAH and GURDEEP. 2. Chronic paranasal sinus disease redemonstrated. [facility], , 05/12/2024 6:31 AM
== END | disposition home or self-care (01) ==
LOC: RADMRIMAIN 21:45
PROVIDERS: ATTEND Family Medicine
DX: J32.0 Chronic maxillary sinusitis (principal); R55 Syncope and collapse; R20.2 Paresthesia of skin; R20.0 Anesthesia of skin
CPT/HCPCS: 70553; A9585

== ENCOUNTER 2024-05-15 13:06 | Observation (INO) | payer OTHER ==
--- NOTE | 2024-05-15 13:25 | ED ---
General Adult HPI - General Chief complaint: Recheck/Abnormal Lab/Rx Stated complaint: headache,dizzy Time Seen by Provider: 05/15/24 13:13 Source: patient Mode of arrival: ambulatory Limitations: no limitations - History of Present Illness Initial comments: Patient presents to the ED complaining of having a gradual onset bitemporal headache and dizziness since yesterday. Patient states that she was found unconscious at work a few weeks ago, and she was seen and discharged from the ED at that time without any explanation for her unconscious episode. She states that she subsequently had an outpatient brain MRI 4 days ago, which demonstrated old blood product in her bilateral frontal lobe regions (MRI report was reviewed myself). She states that her PCP called her with these findings and stated that she would try to set the patient up with a neurologist, but advised that she come to the ED should she experience any headache or symptoms. Patient denies any known head trauma since she was found unconscious at work. Patient denies anticoagulant medication use. Patient denies fever or chills, neck pain or stiffness, focal numbness/weakness/neuro deficit, visual changes, speech difficulty, chest pain or pressure, dyspnea, palpitations, syncope, abdominal pain, nausea/vomiting/diarrhea, bloody or melanotic stool, dysuria or urinary symptoms, or any other symptoms or complaints. Patient states that she is currently being treated for hypertension with metoprolol. Patient denies any known family history of brain aneurysms. - Related Data Previous Rx's Medication Instructions Recorded Cephalexin [Keflex] 500 mg PO Q8HR #21 cap 09/12/20 Omeprazole [PriLOSEC] 20 mg PO DAILY #14 cap 09/12/20 Ketorolac [Toradol] 10 mg PO Q8HR #15 tab 04/01/21 Ondansetron Odt [Zofran Odt] 4 mg PO Q8HR PRN #10 tab 04/01/21 Cefpodoxime Proxetil [Vantin] 200 mg PO Q12HR 10 Days #20 tab 04/07/22 Ondansetron Odt [Zofran Odt] 4 mg PO Q8HR PRN #10 tab 02/07/24 Allergies Allergy/AdvReac Type Severity Reaction Status Date / Time No Known Allergies Allergy Verified 05/15/24 13:11 Review of Systems ROS Statement: Those systems with pertinent positive or pertinent negative responses have been documented in the HPI. ROS Other: All systems not noted in ROS Statement are negative. Past Medical History Past Medical History: Seizure Disorder Additional Past Medical History / Comment(s): depression History of Any Multi-Drug Resistant Organisms: None Reported Past Surgical History: No Surgical Hx Reported Past Psychological History: Depression Smoking Status: Current every day smoker, Vaper Past Alcohol Use History: None Reported Past Drug Use History: Marijuana General Exam Limitations: no limitations General appearance: alert, in no apparent distress Head exam: Present: atraumatic, normocephalic Eye exam: Present: normal appearance, PERRL, EOMI. Absent: nystagmus ENT exam: Present: mucous membranes moist, TM's normal bilaterally Neck exam: Present: other (No nuchal rigidity or meningeal signs are present on exam). Absent: tenderness, meningismus Respiratory exam: Present: normal lung sounds bilaterally. Absent: respiratory distress, wheezes, rales, rhonchi, stridor Cardiovascular Exam: Present: regular rate, normal rhythm, normal heart sounds, other (Normal radial pulses bilaterally) GI/Abdominal exam: Present: soft. Absent: distended, tenderness, guarding Extremities exam: Absent: pedal edema Neurological exam: Present: alert, oriented X3, CN II-XII intact, other (Normal vpciat-db-uzeq exam bilaterally). Absent: motor sensory deficit Psychiatric exam: Present: normal affect Skin exam: Present: warm, dry, normal color Course Vital Signs 05/15/24 13:07 Temperature 99.1 F Pulse Rate 100 Respiratory 17 Rate Blood Pressure 141/91 O2 Sat by Pulse 100 Oximetry - Reevaluation(s) Reevaluation #1: 05/15/24 15:25 Case, H&P and test results/recent imaging (MRI and CT) reports were discussed with Dr. Larios (neurology). He agrees with plan to admit the patient to the hospital on an observational status, stating that he can make sure that the patient get an EEG tomorrow. He is also okay with the patient being discharged home and being scheduled for an outpatient EEG. He recommends asking the patien t, and he states that he would be fine with either option. He does not feel that the patient needs any repeat MRI imaging at this time. He has no further recommendations at this time. 05/15/24 15:30 Patient denies development of any new symptoms while in the ED. Patient continues to have a normal neurological exam. Patient is aware of my discussion with Dr. Larios as above, and she states that she prefers to be admitted to the hospital for observation and EEG scheduling. 05/15/24 15:33 Case, H&P, test result, management thus far, and my discussion with Dr. Larios above were discussed with Dr. Rodriguez. He accepts hospital admission. He has no further recommendations at this time. (Dr. Larios has been made aware of this by [employer], and he has responded that he will schedule her EEG for tomorrow.) EKG Findings - EKG Comments: EKG Findings:: Physician interpretation (interpreted by me): Normal sinus rhythm, no ectopy, ventricular rate of 86 bpm, normal AL and QRS intervals, normal QT interval, normal axis, incomplete right bundle branch block, no ST or T wave abnormality Medical Decision Making - Medical Decision Making Was pt. sent in by a medical professional or institution (, PA, BALANCING MACHINE OPERATOR, urgent care, hospital, or alf...) When possible be specific @ -No Did you speak to anyone other than the patient for history (EMS, parent, family, police, friend...)? What history was obtained from this source @ -No Did you review nursing and triage notes (agree or disagree)? Why? @ -I reviewed and agree with nursing and triage notes Were old charts reviewed (outside hosp., previous admission, EMS record, old EKG, old radiological studies, urgent care reports/EKG's, alf records)? Report findings @ -No old charts were reviewed Differential Diagnosis (chest pain, altered mental status, abdominal pain women, abdominal pain men, vaginal bleeding, weakness, fever, dyspnea, syncope, headache, dizziness, GI bleed, back pain, seizure, CVA, palpatations, mental health, musculoskeletal)? @ -Headache, intracranial hemorrhage, subarachnoid hemorrhage, concussion, migraine, tension headache, cluster headache, anxiety, dizziness, dysrhythmia, anemia, hypoglycemia, hyperglycemia, electrolyte abnormality, , dehydration, this is not meant to be a complete list. EKG interpreted by me (3pts min.). @ -As above X-rays interpreted by me (1pt min.). @ -None done CT interpreted by me (1pt min.). @ -Noncontrast head CT was reviewed myself and shows no acute abnormality. I agree with the radiologist's interpretation as above. U/S interpreted by me (1pt. min.). @ -None done What testing was considered but not performed or refused? (CT, X-rays, U/S, labs)? Why? @ -None What meds were considered but not given or refused? Why? @ -None Did you discuss the management of the patient with other professionals (professionals i.e. DrHarini, PA, BALANCING MACHINE OPERATOR, lab, RT, psych nurse, social sciences chair, metallurgist helper, teacher, cash management officer, case aide)? Give summary @ -As above. Was smoking cessation discussed for >3mins.? @ -No Was critical care preformed (if so, how long)? @ -No Were there social determinants of health that impacted care today? How? (Homelessness, low income, unemployed, alcoholism, drug addiction, transportation, low edu. Level, literacy, decrease access to med. care, penitentiary, rehab)? @ -No Was there de-escalation of care discussed even if they declined (Discuss DNR or withdrawal of care, Hospice)? DNR status @ -No What co-morbidities impacted this encounter? (DM, HTN, Smoking, COPD, CAD, Cancer, CVA, ARF, Chemo, Hep., AIDS, mental health diagnosis, sleep apnea, morbid obesity)? @ -None Was patient admitted / discharged? Hospital course, mention meds given and route, prescriptions, significant lab abnormalities, going to OR and other pertinent info. @ -Patient's ED workup, including EKG, labs and head CT imaging are all negative. Patient has a normal neurological exam in the ED. Given the patient's recent abnormal MRI findings, case was discussed with Dr. Larios (on- call neurologist). He has agreed to order an EEG for the patient tomorrow. He does not feel that transfer or repeat MRI imaging is indicated at this time. Dr. Rodriguez has accepted hospital admission. Patient feels comfortable with this plan. Undiagnosed new problem with uncertain prognosis? @ -No Drug Therapy requiring intensive monitoring for toxicity (Heparin, Nitro, Insulin, Cardizem)? @ -No Were any procedures done? @ -No Diagnosis/symptom? @ -Headache, dizziness, recent abnormal MRI Acute, or Chronic, or Acute on Chronic? @ -Acute Uncomplicated (without systemic symptoms) or Complicated (systemic symptoms)? @ -Default Side effects of treatment? @ -No Exacerbation, Progression, or Severe Exacerbation? @ -No Poses a threat to life or bodily function? How? (Chest pain, [place], [place], pneumonia, PE, COPD, DKA, ARF, appy, cholecystitis, CVA, Diverticulitis, Homicidal, Suicidal, threat to staff... and all critical care pts) @ -No - Lab Data Result diagrams: 05/15/24 12:35 05/15/24 12:35 Lab Results 05/15/24 05/15/24 05/15/24 Range/Units 12:35 12:35 13:53 WBC 7.4 (3.8-10.6) k/uL RBC 4.42 (3.80-5.40) m/uL Hgb 12.0 (11.4-16.0) gm/dL Hct 36.5 (34.0-46.0) % MCV 82.7 (80.0-100.0) fL MCH 27.1 (25.0-35.0) pg MCHC 32.7 (31.0-37.0) g/dL RDW 15.5 (11.5-15.5) % Plt Count 206 (150-450) k/uL MPV 8.0 Neutrophils % 79 % Lymphocytes % 12 % Monocytes % 5 % Eosinophils % 3 % Basophils % 0 % Neutrophils # 5.8 (1.3-7.7) k/uL Lymphocytes # 0.9 L (1.0-4.8) k/uL Monocytes # 0.4 (0-1.0) k/uL Eosinophils # 0.2 (0-0.7) k/uL Basophils # 0.0 (0-0.2) k/uL PT 10.8 (10.0-12.5) sec INR 1.0 (<1.2) APTT 24.7 (22.0-30.0) sec Sodium 135 L (137-145) mmol/L Potassium 3.9 (3.5-5.1) mmol/L Chloride 100 (98-107) mmol/L Carbon Dioxide 26 (22-30) mmol/L Anion Gap 9 mmol/L BUN 13 (7-17) mg/dL Creatinine 0.59 (0.52-1.04) mg/dL Est GFR (CKD-EPI)AfAm >90 (>60 ml/min/1.73 sqM) Est GFR (CKD-EPI)NonAf >90 (>60 ml/min/1.73 sqM) Glucose 99 (74-99) mg/dL Calcium 9.5 (8.4-10.2) mg/dL Total Bilirubin 0.5 (0.2-1.3) mg/dL AST 25 (14-36) U/L ALT 16 (4-34) U/L Alkaline Phosphatase 66 (38-126) U/L Total Protein 7.0 (6.3-8.2) g/dL Albumin 4.4 (3.5-5.0) g/dL HCG, Quant <2.4 mIU/mL - Radiology Data Noncontrast head CT: 1. No acute intracranial process. 2. Mild to moderate paranasal sinus disease. Disposition Clinical Impression: Headache, Dizziness, Abnormal brain MRI Disposition: ADMITTED IP TO THIS [facility] Condition: Stable Is patient prescribed a controlled substance at d/c from ED?: No Referrals: Gurpreet Tsai MD [Primary Care Provider] - 1-2 days Time of Disposition: 15:34
[2024-05-15 13:50] LABS: Basophils % (A) 0 %; Eosinophils # (A) 0.2 k/uL (0-0.7); Eosinophils % (A) 3 %; HCT 36.5 % (34.0-46.0); Lymphocytes # (A) 0.9 k/uL (1.0-4.8); Lymphocytes % (A) 12 %; MCH 27.1 pg (25.0-35.0); MCHC 32.7 g/dL (31.0-37.0); MCV 82.7 fL (80.0-100.0); Monocytes # (A) 0.4 k/uL (0-1.0); Monocytes % (A) 5 %; Neutrophils # (A) 5.8 k/uL (1.3-7.7); Neutrophils % (A) 79 %; Platelet Count 206 k/uL (150-450); RBC 4.42 m/uL (3.80-5.40); RDW 15.5 % (11.5-15.5); WBC 7.4 k/uL (3.8-10.6)
[2024-05-15 14:01] LABS: ALT 16 U/L (4-34); AST 25 U/L (14-36); African American GFR (CKD) >90 (>60 ml/min/1.73 sqM); Albumin 4.4 g/dL (3.5-5.0); Alkaline Phosphatase 66 U/L (38-126); Anion Gap 9 mmol/L; Blood Urea Nitrogen 13 mg/dL (7-17); Calcium 9.5 mg/dL (8.4-10.2); Carbon Dioxide 26 mmol/L (22-30); Chloride 100 mmol/L (98-107); Glucose 99 mg/dL (74-99); Non-African American GFR(CKD) >90 (>60 ml/min/1.73 sqM); Potassium 3.9 mmol/L (3.5-5.1); Sodium 135 mmol/L (137-145); Total Bilirubin 0.5 mg/dL (0.2-1.3)
[2024-05-15 14:05] LABS: Partial Thromboplastin Time 24.7 sec (22.0-30.0); Prothrombin Time 10.8 sec (10.0-12.5)
[2024-05-15 14:18] LABS: HCG,Quantitative Serum <2.4 mIU/mL
--- NOTE | 2024-05-15 14:28 | CT ---
EXAMINATION TYPE: CT brain wo con CT DLP: 1139.4 mGycm, Automated exposure control for dose reduction was used. DATE OF EXAM: 05/15/2024 2:20 PM COMPARISON: CT brain 04/27/2024, MRI brain 05/11/2024 CLINICAL INDICATION:Female, 23 years old with history of headache, recent MRI showing brain bleed, he jatinder, recent MRI showing brain bleed TECHNIQUE: Brain: Multiple axial CT images of the brain were obtained without IV contrast. . Coronal and sagitta l reformats reviewed. FINDINGS: Brain: Extra-axial spaces: No abnormal extra-axial fluid collections. Ventricular system: Within normal limits Cerebral parenchyma: No acute intraparenchymal hemorrhage or mass effect. The berry-white junction is well differentiated. Cerebellum: Unremarkable. Mass effect: No evidence of midline shift. Intracranial vasculature: unremarkable Soft tissues: Normal. Calvarium/osseous structures: No depressed skull fracture. Paranasal sinuses and mastoid air cells: Mild the moderate scattered paranasal sinus disease. Left in ferior maxillary sinus 2.3 cm mucous retention cyst. The mastoid air cells are clear bilaterally. Visualized orbits: Orbital contents are intact. IMPRESSION: 1. No acute intracranial process. 2. Mild to moderate paranasal sinus disease. [facility], , 05/15/2024 2:26 PM
[2024-05-15] MEDS ORDERED: NALOXONE 0.4 MG/ML 1 ML VIAL IV PRN (15:34)
[2024-05-15] MEDS: MORPHINE SULFATE 2 MG/ML SYRINGE IVP STA (16:46)
[2024-05-15] MEDS: SODIUM CHLORIDE 0.9% 500 ML 500 ML IV ONE (20:05)
[2024-05-15] MEDS: METOCLOPRAMIDE 5 MG/ML 2 ML VIAL IVP STA (20:05)
[2024-05-15] MEDS: diphenhydrAMINE 50 MG/ML 1 ML VIAL IVP STA (20:05)
--- NOTE | 2024-05-15 20:10 | P.HPIM ---
History of Present Illness H&P Date: 05/15/24 Chief Complaint: Headache and dizziness Patient is a 23-year-old female with a past medical history of seizures episode x 1 at age 18, currently not on any antiepileptic medications, depression, currently everyday smoker/vaping and marijuana use. Patient presents to ER with complaints of headache and dizziness. She has been having symptoms since yesterday. Patient had a syncopal episode while at work. And was found unconscious about 6 weeks ago. She was seen in the ER and was discharged home. Subsequently patient was seen by primary care physician and had MRI about 4 days ago., Which showed old blood product in her bilateral frontal lobe regions. Patient states that she and her mother hitting her head. But otherwise she noticed bruising on her left side of the face. Patient states that her PCP called her with the findings and was planning to refer her to neurology clinic but advised to go to ER if she experienced a headache or any other symptoms. Otherwise patient denied any fever or chills. No neck stiffness. No complaints of nausea or vomiting. No chest pain or palpitations. No leg swelling. Patient does take metoprolol for hypertension. Denied any recent illnesses. EKG showed sinus rhythm with sinus arrhythmia. CT head showed no acute intracranial process. Mild to moderate paranasal sinus disease. Laboratory data showed WBC 7.4 hemoglobin 12.0 and platelets 206 sodium 143 potassium 3.9 chloride 100 bicarb is 26 BUN 13 creatinine 0.99 and blood sugar 99 liver enzymes are not elevated beta-hCG 2.4 Review of Systems Constitutional: Patient denies any fever or chills . No generalized weakness or weight loss. Abdomen: Patient denied nausea vomiting and diarrhea and abdominal pain. Cardiovascular: Patient denies any chest pain or short of breath no palpitations. Respiratory: patient denied any cough or sputum production. No shortness of breath Neurologic: Patient denied any numbness or tingling. Positive for headache. Musculoskeletal: Patient denies any complaints of joint swelling or deformity. Skin: Negative Psychiatric: Negative Endocrine: No heat or cold intolerance. No recent weight gain. Genitourinary: No dysuria or hematuria. All other 14 point ROS negative except the above Past Medical History Past Medical History: Seizure Disorder Additional Past Medical History / Comment(s): depression History of Any Multi-Drug Resistant Organisms: None Reported Past Surgical History: No Surgical Hx Reported Past Psychological History: Depression Smoking Status: Current every day smoker, Vaper Past Alcohol Use History: None Reported Past Drug Use History: Marijuana Medications and Allergies Home Medications Medication Instructions Recorded Confirmed Type Metoprolol Tartrate [Lopressor] 25 mg PO DAILY 05/15/24 05/15/24 History Allergies Allergy/AdvReac Type Severity Reaction Status Date / Time No Known Allergies Allergy Verified 05/15/24 16:20 Physical Exam Vitals: Vital Signs Temp Pulse Resp BP Pulse Ox 05/15/24 18:11 98.4 F 77 18 137/87 100 05/15/24 13:07 99.1 F 100 17 141/91 100 Intake and Output 05/15/24 05/15/24 05/15/24 06:59 14:59 22:59 Other: Weight 50.802 kg PHYSICAL EXAMINATION: Patient is lying in the bed comfortably, no acute distress, awake alert and oriented.. HEENT: Normocephalic. Neck is supple. Pupils reactive. Nostrils clear. Oral cavity is moist. Neck reveals no JVD, carotid bruits, or thyromegaly. CHEST EXAMINATION: Trachea is central. Symmetrical expansion. Lung franks clear to auscultation and percussion. CARDIAC: Normal S1, S2 with no gallops. No murmurs ABDOMEN: Soft. Bowel sounds normal. No organomegaly. No abdominal bruits. Extremities: reveal no edema. No clubbing or cyanosis Neurologically awake, alert, oriented x3 with well-coordinated movements. No focal deficits noted Skin: No rash or skin lesions. Psychiatric: Coperative. Nonsuicidal Musculoskeletal: No joint swelling or deformity. Normal range of motion. Results CBC & Chem 7: 05/15/24 12:35 05/15/24 12:35 Labs: Abnormal Lab Results - Last 24 Hours (Table) 05/15/24 05/15/24 Range/Units 12:35 12:35 Lymphocytes # 0.9 L (1.0-4.8) k/uL Sodium 135 L (137-145) mmol/L Thrombosis Risk Factor Assmnt - DVT/VTE Prophylaxis DVT/VTE Prophylaxis: Pharmacologic Prophylaxis ordered Assessment and Plan Assessment: Headache and dizziness Recent history of syncopal episode and fall and bruising over the deficit of the face. Etiology unknown. Rule out seizures. History of seizure episode at age 18. Currently not on any antiepileptic medications. Hypertension DVT prophylaxis with heparin subcu. Plan: Patient will be continued on telemonitoring to rule out arrhythmia.. CT head showed no acute intracranial process. Patient had recent MRI as an outpatient. 2D echocardiogram was ordered. Neurology was consulted for evaluation including EEG. Continue to follow closely. Time with Patient: Greater than 30
[2024-05-15] MEDS: HEPARIN SODIUM,PORCINE 5,000 UNIT/ML 1 ML VIAL SQ SCH (20:11)
[2024-05-16] MEDS: METOPROLOL TARTRATE 25 MG TAB PO SCH (08:54)
[2024-05-16 09:46] VITALS: RESP 16
[2024-05-16] MEDS: ACETAMINOPHEN TAB 325 MG TAB PO PRN (10:25)
[2024-05-16] MEDS: levETIRAcetam IV 500 MG/5 ML VIAL IVP STA (15:04)
[2024-05-16 16:01] LABS: Influenza A Not Detected (Not Detectd); Influenza B Not Detected (Not Detectd); RSV Not Detected (Not Detectd)
[2024-05-16 17:17] VITALS: BP 135/77; PULSE 74; TEMP 99.2
--- NOTE | 2024-05-16 18:44 | CA ---
Transthoracic Echo Report Name: Di Payton Age: 23 Gender: F : 2000 Exam Date: 05/16/2024 08:21 Exam Location: [facility] Ht (in): 64 Wt (lb): 112 Ordering Physician: Raj Rodriguez MD Attending/Referring Phys: Practical Nurse Clinical Coordinator Juhi Mendoza RDCS Procedure CPT: Indications: Syncope Cardiac Hx: Technical Quality: Good Contrast 1: Total Dose (mL): Contrast 2: Total Dose (mL): MEASUREMENTS (Male / Female) Normal Values 2D ECHO LV Diastolic Diameter PLAX 4.1 cm 4.2 - 5.9 / 3.9 - 5.3 cm LV Systolic Diameter PLAX 2.6 cm IVS Diastolic Thickness 0.9 cm 0.6 - 1.0 / 0.6 - 0.9 cm LVPW Diastolic Thickness 0.9 cm 0.6 - 1.0 / 0.6 - 0.9 cm LV Relative Wall Thickness 0.5 RV Internal Dim ED PLAX 2.5 cm LVOT Diameter 1.9 cm LA Systolic Diameter LX 2.6 cm 3.0 - 4.0 / 2.7 - 3.8 cm LV Diastolic Volume MOD BP 79.3 cm??? 67 - 155 / 56 - 104 cm??? LV Systolic Volume MOD BP 25.6 cm??? 22 - 58 / 19 - 49 cm??? LV Ejection Fraction MOD BP 67.7 % >= 55 % LV Cardiac Index MOD BP 3414.7 cm???/min???m??? LV Diastolic Volume MOD 4C 82.4 cm??? LV Systolic Volume MOD 4C 22.1 cm??? LV Ejection Fraction MOD 4C 73.1 % LV Cardiac Index MOD 4C 3831.5 cm???/min???m??? LV Diastolic Length 4C 7.3 cm LV Systolic Length 4C 5.4 cm LV Diastolic Volume MOD 2C 74.4 cm??? LV Systolic Volume MOD 2C 26.7 cm??? LV Ejection Fraction MOD 2C 64.0 % LV Cardiac Index MOD 2C 3029.8 cm???/min???m??? LV Diastolic Length 2C 7.6 cm LV Systolic Length 2C 6.0 cm LA Volume 27.8 cm??? 18 - 58 / 22 - 52 cm??? LA Volume Index 18.4 cm???/m??? 16 - 28 cm???/m??? M-MODE Aortic Root Diameter MM 2.6 cm LA Systolic Diameter MM 2.7 cm LA Ao Ratio MM 1.1 AV Cusp Separation MM 1.8 cm DOPPLER MV Area PHT 4.5 cm??? Mitral E Point Velocity 110.1 cm/s Mitral A Point Velocity 77.2 cm/s Mitral E to A Ratio 1.4 MV Deceleration Time 168.4 ms FINDINGS Left Ventricle Left ventricular ejection fraction is estimated at 55-60%. Normal Left ventricular size, wall thickness, systolic function with no obvious regional wall motion abnormalities. Normal Left ventricular diastolic filling pattern. Right Ventricle Normal right ventricular size and function. Right ventricular systolic pressure within normal limits. Right Atrium Normal right atrial size. Left Atrium Normal left atrial size. Mitral Valve Structurally normal mitral valve. Trace mitral regurgitation. No mitral stenosis. Aortic Valve Trileaflet aortic valve. No aortic valve stenosis or regurgitation. Tricuspid Valve Structurally normal tricuspid valve. Trace tricuspid regurgitation. No tricuspid stenosis. Pulmonic Valve Structurally normal pulmonic valve. Trace pulmonic regurgitation. No pulmonic stenosis. Pericardium Minimal pericardial effusion (normal variant). Aorta Normal size aortic root and proximal ascending aorta. CONCLUSIONS Indication for the procedure syncope Preserved LV size and function Prominent posterior pericardial stripe Previewed by: Dr. Dennys Rooney MD (Electronically Signed) Final Date: 16 May 2024 18:43
[2024-05-16] MEDS ORDERED: levETIRAcetam 500 MG TAB PO SCH (21:00)
--- NOTE | 2024-05-17 00:19 | EEG ---
ELECTROENCEPHALOGRAM REPORT PREAMBLE: This is a 23-year-old female with syncope. The patient was found unconscious at work. The patient has history of seizure disorder. CURRENT MEDICATIONS: Metoprolol. EEG FINDINGS: This is a 21-channel digital EEG recorded with video component, utilizing 10/20 international system with referential and bipolar montages. Background consists of well developed, well regulated moderate voltage activity in 10 hertz alpha. Background is posterior dominant and reactive to eye opening and closing. Photic driving response was not clearly seen. Drowsiness was seen with appearance of bilaterally symmetric theta frequency rhythm. Deeper stages of sleep were not seen. There were 3 different instances of paroxysmal sharp appearing waves, appeared more significant in which there was presence of spike and slow wave, almost at 3 hertz, and #3 lasted for about 0.5 seconds. No motor activity was noted. No electrographic seizure was recorded. IMPRESSION: This is an abnormal EEG due to presence of sporadic (3) episodes of paroxysmal sharp wave. The event #2 and #3 were associated with spike and slow waves almost at 3 hertz, lasted for about 0.5 seconds. Consider prolonged EEG for further evaluation. 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 No electrographic seizure was recorded. MMODL / IJN: [id number] /
--- NOTE | 2024-05-18 09:50 | P.DS ---
Providers Date of admission: 05/15/24 15:34 Expected date of discharge: 05/16/24 Attending physician: Raj Rodriguez Consults: 05/15/24 15:34 Consult Physician Urgent Consulting Provider: Balbir Larios Consult Reason/Comments: Headaches, dizziness, recent abnormal brain MRI Do you want consulting provider notified?: Yes Primary care physician: Gurpreet Tsai MD Hospital Course: Final diagnosis Headache and dizziness, abnormal EEG, being started on Keppra difficult to exclude seizure per neurology Recent history of syncopal episode and fall and bruising over the deficit of the face. Etiology unknown. Difficult to rule out seizures. History of seizure episode at age 18. Was not taking any seizure medications, being started on discharge per neurology Hypertension DVT prophylaxis with heparin subcu. Vaping Discharge disposition Patient is being discharged in a stable condition with guarded prognosis to home. Patient will follow-up with Dr. Tsai in the outpatient setting upon discharge. Patient is to continue with Keppra and close outpatient follow-up with neurology as scheduled. Total time taken is greater than 35 minutes. Hospital course This is a 23-year-old female who was recently admitted after a syncopal episode and being found unconscious at work with previous history of seizure disorder although has not had a seizure and was not on medications. Patient underwent EEG which was abnormal as there was sporadic episodes of paroxysmal sharp waves with spikes and slow waves per neurology and recommending outpatient prolonged EEG as the activity noted on EEG can be considered interictal expression of primary generalized epilepsy as there was no electrographic seizures noted during the exam. Patient has been started on Keppra recommending outpatient follow-up with neurology and has been cleared by consultations. Please refer to consultation notes for further HPI. Patient has been instructed to follow-up with primary care provider this week. Currently no reports of chest pain, shortness of breath, or palpitations. Patient is afebrile. No reports of nausea or vomiting and patient is tolerating diet. Patient will be discharged home. Guarded prognosis. Physical exam: Gen: This is a 23-year-old female who is awake, alert and oriented x 3, well- developed, well-nourished HEENT: Head is atraumatic, normocephalic. Pupils equal, round. Sclerae is anicteric. NECK: Supple. No JVD. No lymphadenopathy. No thyromegaly. LUNGS: Clear to auscultation. No wheezes or rhonchi. No intercostal retractions. HEART: Regular rate and rhythm. No murmur. ABDOMEN: Soft. Bowel sounds are present. No masses. No tenderness. EXTREMITIES: No pedal edema. No calf tenderness. NEUROLOGICAL: Patient is awake, alert and oriented x3. Cranial nerves 2 through 12 are grossly intact. Please refer to medication reconciliation sheet for a list of medications. The impression and plan of care has been dictated by Jacinta Nuno, Nurse Practitioner as directed. Dr. Galen MD I have performed a history and examination and MDM of this patient, discussed the same with the dictator, and agree with the dictator's assessment and plan as written ,documented as a scribe. Based on total visit time, I have performed more than 50% of the visit. Patient Condition at Discharge: Stable Plan - Discharge Summary Discharge Rx Participant: Yes New Discharge Prescriptions: New Acetaminophen Tab [Tylenol] 650 mg PO Q6HR PRN tab PRN Reason: Mild Pain Or Fever > 100.5 levETIRAcetam [Keppra] 500 mg PO Q12HR #60 tab Continue Metoprolol Tartrate [Lopressor] 25 mg PO DAILY Discharge Medication List Metoprolol Tartrate [Lopressor] 25 mg PO DAILY 05/15/24 [History] Acetaminophen Tab [Tylenol] 650 mg PO Q6HR PRN tab 05/16/24 [Rx] levETIRAcetam [Keppra] 500 mg PO Q12HR #60 tab 05/16/24 [Rx] Follow up Appointment(s)/Referral(s): Gurpreet Tsai MD [Primary Care Provider] - 1-2 days Mason Champion MD [Medical Doctor] - 1 Week Activity/Diet/Wound Care/Special Instructions: Okay for discharge once cleared by neurology Activity limited until follow-up Follow-up with primary care provider on discharge Follow-up with neurology outpatient During hospitalization, patient received these medications: Tylenol 650 mg every 6 hours as needed Heparin subcutaneous injections twice daily IV Keppra 750 mg once Keppra 500 mg p.o. twice daily Lopressor 25 mg daily Benadryl 25 mg IV push once Reglan 10 mg IV push once Morphine sulfate 2 mg IV push once in the ER Normal saline fluids Discharge Disposition: HOME SELF-CARE
== END 2024-05-16 17:18 | disposition home or self-care (01) ==
LOC: EC 13:06 → 6NMEDSUR 15:34 → 1SOBS 05-16 01:36
PROVIDERS: ADMIT Internal Medicine; ATTEND Internal Medicine
DX: R42 Dizziness and giddiness (principal); R51.9 Headache, unspecified; R94.01 Abnormal electroencephalogram [EEG]; F32.A Depression, unspecified; I10 Essential (primary) hypertension; Z79.899 Other long term (current) drug therapy
CPT/HCPCS: 96365; 96372 ×2; 96361 ×2; 96375; 99285; 36415; 95816; 93005; 93306; 80053; 85652; 85025; 85610; 85730; 86140; 84702; 87636; 70450; G0378 ×2; J1200; J1644 ×2; J2765; J2270; J1953

== ENCOUNTER 2024-09-06 04:03 | Emergency (ER) | payer OTHER ==
--- NOTE | 2024-09-06 04:13 | ED ---
Anxiety HPI - General Chief Complaint: Anxiety Stated Complaint: Difficulty Breathing Time Seen by Provider: 09/06/24 04:08 Source: patient, family Mode of arrival: wheelchair - History of Present Illness Initial Comments: 24-year-old female with history of seizure disorder, depression, current vape use and marijuana use here for multiple complaints. Patient reported that she thought she was asleep but actually she was unable to sleep in the last few hours and noticed that there was "something wrong". A few minutes later, patient reported that she started to be unable to move and could not breathe, had spotty vision, and began to have sharp chest pain that was nonradiating and intensity of 10 out of 10 at maximum. She then tried to stand up and fell to the ground but denied hitting her head. she denied loss of consciousness, loss of control of urination or defecation, focal weakness, confusion, diaphoresis, extremity swelling, recent prolonged travel, fever, chills, recent exposure to sick contacts. - Related Data Home Medications: Home Medications Medication Instructions Recorded Confirmed Metoprolol Tartrate [Lopressor] 25 mg PO DAILY 05/15/24 05/15/24 Previous Rx's Medication Instructions Recorded Acetaminophen Tab [Tylenol] 650 mg PO Q6HR PRN tab 05/16/24 levETIRAcetam [Keppra] 500 mg PO Q12HR #60 tab 05/16/24 Allergies/Adverse Reactions: Allergies Allergy/AdvReac Type Severity Reaction Status Date / Time No Known Allergies Allergy Verified 09/06/24 04:11 Review of Systems ROS Statement: Those systems with pertinent positive or pertinent negative responses have been documented in the HPI. ROS Other: All systems not noted in ROS Statement are negative. Past Medical History Past Medical History: Hypertension, Seizure Disorder Additional Past Medical History / Comment(s): depression History of Any Multi-Drug Resistant Organisms: None Reported Past Surgical History: No Surgical Hx Reported Past Anesthesia/Blood Transfusion Reactions: No Reported Reaction Past Psychological History: Depression Smoking Status: Current every day smoker, Vaper Past Alcohol Use History: None Reported Past Drug Use History: Marijuana General Exam - General Exam Comments Initial Comments: Physical examination: Vital signs reviewed General: non toxic, moderate distress, appears at stated age Head: atraumatic, normocephalic, symmetric Mouth: no lip lesion, mucus membranes moist Cardiovascular: S1S2 reg, no murmur Lungs: CTA bilateral, no rhonchi, no rales, no accessory muscle use, hyperventilating Abdominal: soft, nondistended, nontender to palpation, no guarding Ext: muscle strength 5 out of 5 in all 4 extremities grossly, no gross muscle atrophy, no contractures, positive dorsalis pedis pulse bilateral, no edema Neuro: no gross focal neuro deficits, CN II-XII intact grossly Psych: Alert and oriented x3, tearful and anxious affect and mood Course Vital Signs 09/06/24 09/06/24 04:09 05:04 Temperature 97.9 F Pulse Rate 87 76 Respiratory 18 19 Rate Blood Pressure 153/103 137/89 O2 Sat by Pulse 100 100 Oximetry Medical Decision Making - Medical Decision Making Was pt. sent in by a medical professional or institution ([facility], PROFESSOR OF IND[employer] TECHNOLOGY, urgent care, hospital, or detention...) When possible be specific @ -No Did you speak to anyone other than the patient for history (EMS, parent, family, police, friend...)? What history was obtained from this source @ -No Did you review nursing and triage notes (agree or disagree)? Why? @ -I reviewed and agree with nursing and triage notes Were old charts reviewed (outside hosp., previous admission, EMS record, old EKG, old radiological studies, urgent care reports/EKG's, detention records)? Report findings @ -No old charts were reviewed Differential Diagnosis? @ -Differential Mental Health Depression, anxiety, panic attack, bipolar, psychosis, behavioral disorder, brain tumor, malingering, substance abuse.... This is not meant to be all- inclusive list EKG interpreted by me (3pts min.). @ -None done X-rays interpreted by me (1pt min.). @ -None done CT interpreted by me (1pt min.). @ -None done U/S interpreted by me (1pt. min.). @ -None done What testing was considered but not performed or refused? (CT, X-rays, U/S, labs)? Why? @ -None What meds were considered but not given or refused? Why? @ -None Did you discuss the management of the patient with other professionals (professionals i.e. [facility], PROFESSOR OF INDUSTRI[employer] TECHNOLOGY, lab, RT, psych nurse, outreach and education social worker, senior sales manager, teacher, branch officer, top case assembler)? Give summary @ -Dr. Bobby, supervising physician Was smoking cessation discussed for >3mins.? @ -No Was critical care preformed (if so, how long)? @ -No Were there social determinants of health that impacted care today? How? (Homelessness, low income, unemployed, alcoholism, drug addiction, transportation, low edu. Level, literacy, decrease access to med. care, detention, rehab)? @ -No Was there de-escalation of care discussed even if they declined (Discuss DNR or withdrawal of care, Hospice)? DNR status @ -No What co-morbidities impacted this encounter? (DM, HTN, Smoking, COPD, CAD, Cancer, CVA, ARF, Chemo, Hep., AIDS, mental health diagnosis, sleep apnea, morbid obesity)? @ -None Was patient admitted / discharged? Hospital course, mention meds given and route, prescriptions, significant lab abnormalities, going to OR and other pertinent info. @ -Discharge. Given 1 mg Ativan IM and patient symptoms improved and no new complications occurred. She is advised to follow-up with PCP and to continue counseling for management of panic disorder. Mentioned that there is available resources for mental health providers and counseling on discharge packet. Undiagnosed new problem with uncertain prognosis? @ -No Drug Therapy requiring intensive monitoring for toxicity (Heparin, Nitro, Insulin, Cardizem)? @ -No Were any procedures done? @ -No Diagnosis/symptom? @ -Default Acute, or Chronic, or Acute on Chronic? @ -Default Uncomplicated (without systemic symptoms) or Complicated (systemic symptoms)? @ -Default Side effects of treatment? @ -No Exacerbation, Progression, or Severe Exacerbation? @ -No Poses a threat to life or bodily function? How? (Chest pain, [place], ID, pneumonia, PE, COPD, DKA, ARF, appy, cholecystitis, CVA, Diverticulitis, Homicidal, Suicidal, threat to staff... and all critical care pts) @ -No Disposition Clinical Impression: Panic attack Disposition: HOME SELF-CARE Condition: Good Instructions (If sedation given, give patient instructions): Generalized Anxiety Disorder (ED) Additional Instructions: Every disease is a spectrum and a small chance still exists that a serious condition could develop, for this reason, please monitor yourself closely for new, changing or worsening symptoms, symptoms that persist beyond another 72 hours, uncontrollable seizures, loss of consciousness, suicidal or homicidal ideation and planns, fever >4 days, inability to tolerate/keep down fluids or your medications, inability to follow up with outpatient providers as instructed and should you experience these symptoms or should you have any further concerns for your wellbeing please return to the ED or call 911 immediately. PLEASE call your primary care physician as soon as possible to arrange / discuss plan for followup appointment. Appointment in the next 1-3 days is strongly encouraged if possible. PLEASE let us know here before you leave if there is anything further we can do to be of any assistance. Take care and feel Better! Is patient prescribed a controlled substance at d/c from ED?: No Referrals: Gurpreet Tsai MD [Primary Care Provider] - 1-2 days Time of Disposition: 05:58
[2024-09-06] MEDS: LORazepam 1 MG/0.5 ML VIAL IM STA (04:54)
[2024-09-06 06:30] VITALS: BP 141/93; PULSE 66; RESP 17; TEMP 98.5
== END 2024-09-06 06:25 | disposition home or self-care (01) ==
LOC: EC 04:03
DX: F41.0 Panic disorder [episodic paroxysmal anxiety] (principal); F17.290 Nicotine dependence, other tobacco product, uncomplicated
CPT/HCPCS: 96372; 99283; J2060